=== PATIENT | female | born 1955 ===

== ENCOUNTER 2025-01-09 08:48 | Outpatient (CLI) | payer MEDICARE, MEDICAID, SELFPAY ==
--- NOTE | ~2025-01-09 | XR_ITS ---
Fluoroscopically-guided video swallow - 01/09/2025 09:20 CDT History: : 69 years old Female with dysphagia Technique: Fluoroscopic guidance was provided during video swallowing study. Under direct fluoroscopic evaluatio n, the speech pathologist administered barium mixed liquids and solid food of varying consistency. T he mechanisms of bolus formation and swallowing were observed. FINDINGS/ IMPRESSION: Patient swallowed liquid barium. No nasopharyngeal reflux was seen. There were residuals on the posterior tongue and pooling within the vallecula and piriform sinuses. Multiple swallows were required to clear the residuals. Fluoroscopically-guided video swallowing study, as above. Please see speech pathology report for furt her details. Reviewed, dictated and finalized at location A.
--- OUTSIDE RECORDS SUMMARY | 2025-01-09 09:12 | XMS_ITS | Clinical Summary ---
Author Organization [facility] Address [address] [place] [address] Care Team Providers Care Accounting Coordinator Name Role Phone Unavailable Primary Care Provider Unavailabl e Social History Tobacco Use Types Packs/Day Years Used Date Smoking Tobacco: Never Assessed Comments Unknown Sex and Gender Information Value Date Recorded Sex Assigned at Not on file Legal Sex Female 6:43 PM CDT Gender Identity Not on file Sexual Orientation Not on file Plan of Treatment Health Maintenance Due Date Last Done Comments Colorectal Cancer Screening Colonoscopy (10 Years) 1954 Hepatitis C 1972 DTaP, Tdap and Td Vaccines ( 1 - Tdap) 1973 Mammogram Screening 1994 Zoster Vaccines (1 of 2) 2004 Dexa Scan (General) 2019 Pneumococcal Vaccine: 65+ Ye ars (1 of 1 - PCV) 2019 COVID-19 Vaccine ( - 2023-2 5 season) 2024 RSV Immunization or 60+ Years (1 - 1-dose 75+ series) 2029 Meningococcal B Vaccine Aged Out No l onger eligible based on patient's age to complete this topic Meningococcal Vaccine Aged Out No kaiden yoel eligible based on patient's age to complete this topic RSV Immunizations Under 20 Months Aged Out No longer eligible based on patient's age to complete this topic
--- OUTSIDE RECORDS SUMMARY | 2025-01-09 09:12 | XMS_ITS | Clinical Summary ---
Author Organization [facility] Address [address] [place] [address] Care Team Providers Care Product Manager E Commerce Name Role Phone Jose David Orellana MD Primary Care Provider [phone] Allergies No known active allergies Medications gabapentin (NEURONTIN) 400 mg capsule Take 1 capsule (400 mg total) by mouth 3 (three) times a day 90 capsule 5 03/15/2023 Active baclofen (LIORESAL) 10 mg tablet Take 1 tablet (10 mg total) by mouth 3 (three) times a day 90 tablet 5 03/15/2023 Active lisinopriL (PRINIVIL,ZESTRI L) 10 mg tablet Take 1 tablet (10 mg total) by mouth daily 30 tablet 5 03/15/2023 Active QUEtiapine (SEROquel) 50 mg tablet Take 1 tablet (50 mg total) by mouth nightly 30 tablet 5 03/15/2023 Active famotidine (PEPCID) 40 mg tablet Take 1 tablet (40 mg total) by mouth daily Active donepeziL (ARICEPT) 10 mg tablet Take 1 tablet (10 mg total) by mouth nightly 90 tablet 3 05/08/2023 Active escitalopram (LEXAPRO) 20 mg tablet Take 1 tablet (20 mg total) by mouth daily 90 tablet 4 05/08/2023 Active traMADoL (ULTRAM) 50 mg tablet Take 1 tablet (50 mg total) by mouth every 6 (six) hours as needed for pain Active meloxicam (MOBIC) 15 mg tabletIndication s:Right-sided low back pain with right-sided sciatica, unspecified chronicity Take 0.5 tablets (7.5 mg total) by mouth daily for 15 days 30 tablet 1 09/07/2023 Active alendronate (FOSAMAX) 70 mg tablet 11/09/2023 Active scopolamine 1 mg over 3 days patch 3 day 10/25/2023 Active aspirin 81 mg enteric coated tablet Take 1 tablet (81 mg total) by mouth daily 90 tablet 3 11/14/2023 Active carbidopa-levodo pa (SINEMET) 10-100 mg per tabletIndication s:Parkinsonism Take 1.5 tablets by mouth 4 (four) times a day 540 tablet 3 11/14/2023 Active HYDROcodone-acet aminophen (NORCO) 5-325 mg per tabletIndication s:Pain Take 1 tablet by mouth every 6 (six) hours as needed for pain 20 tablet 12/09/2023 Active doxycycline hyclate 100 mg capsule 12/06/2023 Active Active Problems Problem Noted Date Diagnosed Date Right-sided low back pain with right-sided sciat ica 09/07/2023 Right hip pain 07/12/2023 Closed fracture of neck of right femur 3 Peripheral polyneuropathy 06/11/2023 Dyspepsia 06/11/2023 Unsteady gait 05/08/2023 Assessment & Plan (05/08/2023 11:52 AM CDT): Discussed possibility of physical therapy. We will give prescription for Rollator walker with seat. Recurrent falls 05/08/2023 Assessment & Plan (05/08/2023 11:52 AM CDT): discussed possible physical therapy will give Rollator walker with seat. Generalized weakness 05/08/2023 Memory loss 05/08/2023 Assessment & Plan (05/08/2023 11:54 AM CDT): Likely due to Alzheimer's dementia and we will try Aricept 10 mg Bipolar depression 05/07/2023 Assessment & Plan (05/08/2023 11:53 AM CDT): Mood could be better. Continue Seroquel same dosage but increase Lexapro from 10-up to 20 mg daily. Loose stools 03/06/2023 Assessment & Plan (03/06/2023 11:56 AM CDT): Refer to Gastroenterology Aftercare following right hip joint replacement surgery 03/04/2023 Pre-diabetes 03/04/2023 Assessment & Plan (05/07/2023 10:51 AM CDT): Improved without medicine. Assessment & Plan (03/04/2023 3:12 PM CDT): Worsening with higher blood sugars. Recommend metformin. metformin declined. Primary osteoarthritis involving multiple joints 03/04/2023 Cerebral infarction, unspecified 11/06/2022 Cognitive communication deficit 11/06/2022 Dysarthria and anarthria 11/06/2022 Dysphagia, oropharyngeal phase 11/06/2022 Hemiplegia and hemiparesis f ollowing cerebral infarction affecting right dominant side 11/06/2022 Muscle weakness (generalized) 11/06/2022 Other abnormalities of gait and mobility 023 Hypoglycemia 10/29/2022 Depression, unspecified 10/01/2020 Mild protein-calorie malnutrition 10/01/2020 Arthralgia of temporomandibular joint 11/08/2017 Parkinson's disease 10/12/2017 Assessment & Plan (03/06/2023 12:09 PM CDT): Continue Sinemet at same dosage. Well controlled. Refer neurology Hypertension 08/03/2017 Assessment & Plan (03/06/2023 12:10 PM CDT): Continue lisinopril/at same dosage but discontinue the hydralazine as they have been only using this infrequently p.r.n.. Discussed dangerous p.r.n. use of blood pressure medication. 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 Hypertrophy of nasal turbinates 07/06/2015 Deviated nasal septum 07/06/2015 Immunizations Immunization Administration Dates Next Due Influenza, Quadrivalent, Spl it, Intramuscular 08/23/2021 Influenza, Trivalent, IM (MDV) 11/08/2016 Influenza, Trivalent, Preser vative Free, Intramuscular 07/20/2017 Influenza, Unspecified 06/11/2023(Deferr ed: Patient decision),05/08/2023(Deferred: Patient decision),07/15/2022 Pfizer Sars-Cov-2 Bivalent V accination (12+ YRS) 11/30/2022 Pneumococcal Conjugate Pcv20 07/15/2022 Zoster, unspecified 05/10/2022 Surgical History Surgery Date Site/Laterality Comments HYSTERECTOMY Medical History Medical History Date Comments Personal history of transien t ischemic attack (TIA), and cerebral infarction without residual deficits History of stroke - (Added b y TW Conv) Neoplasm Tumors - (Added by TW Conv) Personal history of healed t raumatic fracture History of fracture of wrist - (Added by TW Conv) Personal history of healed t raumatic fracture History of fracture of hip - (Added by TW Conv) Parkinson's disease (HCC) Hypertension Osteoporosis Parkinson disease (HCC) Pituitary neoplasm Stroke (HCC) Chronic diarrhea Family History Medical History Relation Name Comments Hypertension Father Dementia Mother Family history of dementia - (Added by TW Conv) Diabetes Mother Family history of diabetes mellitus - (Added by TW Conv) Hypertension Mother Family history of hypertension - (Added by TW Conv) Stroke Mother Hypertension Sister Relation Name Status Comments Father Mother Sister Social History Tobacco Use Types Packs/Day Years Used Date Smoking Tobacco: Never Tobacco Cessation:Counseling Given: Not Answered Alcohol Use Standard Drinks/Week Comments Not Currently 0 (1 standard drink = 0.6 oz pur e alcohol) Social Connection and Isolat ion Panel [NHANES] Answer Date Recorded In a typical week, how many times do you talk on the phone with family, friends, or neighbors? More than three times a week 06/29/2023 How often do you get togethe r with friends or relatives? More than three times a week 06/29/2023 How often do you attend chur [employer] or jainism services? Never 06/29/2023 Do you belong to any clubs o r organizations such as moravian groups, unions, fraternal or athletic groups, or school groups? No 06/29/2023 How often do you attend meet ings of the clubs or organizations you belong to? Never 06/29/2023 Are you , , di vorced, , never , or living with a partner? 06/29/2023 AUDIT-C Answer Date Recorded Q1: How often do you have a drink containing alcohol? Never 05/18/2023 Q2: How many drinks containi ng alcohol do you have on a typical day when you are drinking? Patient does not drink Q3: How often do you have si x or more drinks on one occasion? Never 05/18/2023 Overall Financial Resource Strain (CARDIA) Answe r Date Recorded How hard is it for you to pa y for the very basics like food, housing, medical care, and heating? Not hard at all 06/29/2023 PHQ-2 Answer Date Recorded PHQ-2 Total Score (If total score is 3 or more points, staff should administer the PHQ-9) 2 05/08/2023 Hunger Vital Sign Answer Date Recorded Within the past 12 months, y ou worried that your food would run out before you got the money to buy more. Never true 06/29/20 23 Within the past 12 months, t he food you bought just didn't last and you didn't have money to get more. Never true 06/29/2023 PRAPARE - Transportation Answer Date Re corded In the past 12 months, has l ack of transportation kept you from medical appointments or from getting medications? No 06/02 In the past 12 months, has l ack of transportation kept you from meetings, work, or from getting things needed for daily living? No 06/29/2023 Housing Stability Vital Sign Answer Alex e Recorded In the last 12 months, was t here a time when you were not able to pay the mortgage or rent on time? No 06/29/2023 In the last 12 months, how many places have you lived? 1 06/29/2023 In the last 12 months, was t here a time when you did not have a steady place to sleep or slept in a senior living (including now)? No 06/29/2023 Personal Safety Answer Date Recorded Have you ever been in or are you currently in a harmful physical or emotional relationship or is someone making you feel afraid or unsafe? Denies 01/06/2024 Comments Unknown Sex and Gender Information Value Date Recorded Sex Assigned at Not on file Legal Sex Female 4:09 AM CLOTH PACKER Gender Identity Not on file Sexual Orientation Not on file Obstetrics History Last Filed Vital Signs Vital Sign Reading Time Taken Comments Blood Pressure 180/90 01/06/2024 3:00 PM CDT Pulse 65 01/06/2024 3:00 PM CDT Temperature 36.4 C (97.6 F) 01/06/2024 2:04 PM CDT Respiratory Rate 19 01/06/2024 3:00 PM CDT Oxygen Saturation 100% 01/06/2024 3:00 PM CDT Inhaled Oxygen Concentration - - Weight 70 kg (154 lb 5.2 oz) 01/06/2024 2:03 PM CDT Height 167.6 cm (5' 5.98 ) 01/06/2024 2:03 PM CD T Body Mass Index 24.92 01/06/2024 2:03 PM CDT Plan of Treatment Health Maintenance Due Date Last Done Comments Breast Cancer Screening-Mammogram 1955 Hepatitis C Screening 1955 DTaP/Tdap/Td Vaccine (1 - Tdap) 1965 Hepatitis B Screening 1972 Zoster Vaccine (1 of 2) 2004 05/10/2022 Osteoporosis Screening-Bone Density Scan 11/13/2019 11/13/2017 Well Visit 65+ 03/06/2024 03/06/2023 Depression Screening 05/08/2024 05/08/2023, 03/06/20 23 Covid-19 Vaccine (5 - 2023-2 5 season) 2024 11/30/2022, 07/06/2021, 10/26/2020, Additional history exists Fall Risk Assessment 07/02/2024 07/02/2023, 03/06/20 23 Influenza Vaccine (Season Ended) 2025 07/15/2022, 08/23/2021, 07/20/2017, Additional history exists Colon Cancer Screening-Colonoscopy 05/18/2033 05/18/2023 Pneumococcal vaccine 65+ Completed 07/15/2022 Colon Cancer Screening-CT Colonography Discontinued 05/18/2023 Colon Cancer Screening-DNA Stool Discontinued 05/18/20 Colon Cancer Screening-FIT Discontinued 05/18/2023 Colon Cancer Screening-Sigmoidoscopy Discontinued 05/18/2023 Medical Devices Implanted Type Area Weather Observer Device Identifier Shelf Expiration Date Model / Serial / Lot [employer] Bioprep Preparation Plug Cathode Builder [place] Curette Suction Femoral [id number] - [id number] Implanted:Qty: 1 on 06/29/2023 by Jerson Noble MD at [facility] Right: Hip [employer] [id number] 11/30/2027 [id number] / / [id number] [employer]/Ort ho Synergy 10mm 115mm Primary Cemented Forged Hip 3d Standard Offset [id number] - [id number] Implanted:Qty: 1 on 06/29/2023 by Jerson Noble MD at [facility] Right: Hip [employer]/O rtho [id number] 11/04/2032 [id number] / / [id number] [employer]/Ort ho Invis 10mm Reconstruction Hip Femur Distal Centralizer Stem Pmma [id number] - [id number] Implanted:Qty: 1 on 06/29/2023 by Jerson Noble MD at [facility] Right: Hip [employer]/O rtho [id number] 05/12/2033 [id number] / / [id number] [employer] Simplex P Radiopaque Full Dose Cement Bone Sterile 6191-1-010 - [id number] Implanted:Qty: 2 on 06/29/2023 by Jerson Noble MD at [facility] Right: Hip [employer] 09/30/2025 6191-1-010 / / [id number] [employer]/Ort ho Tandem 45mm 28mm Hip Shell/Liner Bipolar Uhmwpe Cocr [id number] - [id number] Implanted:Qty: 1 on 06/29/2023 by Jerson Noble MD at [facility] Right: Hip [employer]/O rtho [id number] 01/27/2033 [id number] / / [id number] [employer]/Ort ho Powers 28mm Taper Neck Primary Hip +0mm 09/13 Head Femoral Cocr [id number] - [id number] Implanted:Qty: 1 on 06/29/2023 by Jerson Noble MD at [facility] Right: Hip [employer]/O rtho [id number] 08/07/2032 [id number] / / [id number] Procedures Procedure Name Priority Date/Time Associated Diagnosis Comments COLONOSCOPY 05/18/2023 2:09 PM CDT BONE MINERAL DENSITY 11/13/2017 from Last 3 Months or Most Recently Relevant to Health Maintenance Results * COLONOSCOPY (05/18/2023 2:09 PM CDT) Anatomical Region Laterality Modality Other Narrative Procedure Note Jacqui Fabian MD - 05/18/2023 2:09 PM CDT [facility] GI ENDOSCOPY Patient Name: Marly Oneal Procedure Date: 05/18/2023 2:09 PM Date of : 1955 Admit Type: Outpatient Age: 67 Gender: Female Attending MD: Jacqui Fabian M.D. Room: [facility] ENDOSCOPY ROOM 05 Note Status: Finalized Procedure: Colonoscopy Indications: Screening for colorectal malignant neoplasm Referring MD: Providers: Jacqui Fabian M.D. Medicines: See the Anesthesia note for documentation of the administered medications Complications: No immediate complications. Estimated Blood Loss: Estimated blood loss: none. Procedure: Pre-Anesthesia Assessment: - Prior to the procedure, a History and Physicalwas performed, and patient medications, allergies and sensitivities were reviewed. The patient'stolerance of previous anesthesia was reviewed. - The risks and benefits of the procedure and the sedation options and risks were discussed with the patient. All questions were answered and informed consent was obtained. The benefits, risks and alternatives of theprocedure and sedation were discussed and informed consentwas obtained. All questions were answered. Please referto the signed informed consent document in the medical record. The scope was passed under direct vision.The PCF-H180AL colonoscope was introduced through theanus and advanced to the cecum, identified byappendiceal orifice and ileocecal valve. The colonoscopy was performed without difficulty. The patient tolerated the procedure well. The quality of the bowel preparation was adequate to identify polyps. The ileocecal valve, appendiceal orifice, and rectumwere photographed. Prep was administered in a singledose. Findings: The perianal and digital rectal examinations were normal. Pertinent negatives include normal sphincter tone. A few small-mouthed diverticula were found in the left colon. Impression: - The entire examined colon is normal on direct and retroflexion views. - No specimens collected. Recommendation: - Resume previous diet. - Continue present medications. aJcqui Fabian M.D. Jacqui Fabian M.D. 05/18/2023 2:53:22 PM . Number of Addenda: 0 Note Initiated On: 05/18/2023 2:09 PM Recognized by the [employer] for promoting quality in endoscopy Jacqui Fabian MD ENDOSCOPY PROCEDURES Rubina l Result * BONE MINERAL DENSITY (11/13/2017) Anatomical Region Laterality Modality Radiographic Winsome ging Narrative 11/13/2017 Ordered by an unspecified provider. Historical Provider IMG DXA PROCEDURES Final Result from Last 3 Months or Most Recently Relevant to Health Maintenance Insurance MEDICARE [facility] MEDICARE [place] MEDICARE [facility] Advance Directives For more information, please contact: [phone] Documents on File Type Date Recorded Patient Personnel Clerk Expl anation ADVANCE DIRECTIVE 11/26/2023 3:44 PM POLST ADVANCE DIRECTIVE 10/08/2023 3:45 PM POLST - Phys Order for PT Preferences ADVANCE DIRECTIVE 11/07/2022 1:18 PM POLST - Phys Order for PT Preferences ADVANCE DIRECTIVE 11/07/2022 1:17 PM Power of Automobile Dealer-Medical * Full Code (Latest Code Status on File) Date Activated Date Inactivated Comments 06/28/2023 6:19 PM 07/02/2023 10:11 PM * Full Code Date Activated Date Inactivated Comments 10/30/2022 7:41 AM 11/06/2022 9:57 PM Care Teams Product Manager E Commerce Relationship Specialty Start Date End Date Jose David Orellana MD [address] [place] [id number] PCP - General Family Practice 03/06/23
--- OUTSIDE RECORDS SUMMARY | 2025-01-09 09:12 | XMS_ITS ---
Author Organization [facility] Care Team Providers Care Rotary Derrick Operator Name Role Phone Arielle Mckeon Unavailable Unavailable Bianca Pastrana Unavailable Unavailable Rebeka Wesley Unavailable Unavailable Hernique Vilchis Unavailable Unavailable Allergies and adverse reactions No Known Allergies Care Team Name Role Address Phone Organization Dates Arielle Mckeon PCP [address] [place], [address], [place] (Office): : : [facility] 10/10/2022 - 10/29/2022 Bianca Pastrana Attending Physician [address] [place], [place], [facility], [place] (Office): : [facility] 10/10/2022 - 10/29/2022 Rebeka Wesley Attending Physician [address] [place], [address], [place] (Office): : : [facility] 10/10/2022 - 10/29/2022 Henrique Vilchis Attending Physician [address] [place], [address], [place] (Office): : : [facility] 10/10/2022 - 10/29/2022 Goals Section Description Status Target Date Marly will improve current level of function. A ctive 12/31/2022 Skin will be kept free of an y breakdown or pressure ulcer development through next review date. Active 12/31/2022 The resident will be free fr om discomfort or adverse reactions related to antidepressant therapy through the review date. Active 12/31/2022 The resident will be free of injury r/t falls. A ctive 12/31/2022 The resident will be/remain free of psychotropic drug related complications, including movement disorder, discomfort, hypotension, gait disturbance, constipation/impaction or cognitive/behavioral impairment through review date. Active 0 12/31/2022 The resident will maintain intact skin. Active 12/31/2022 The resident will reduce the use of psychotropic medication through the review date. Active 12/31/2022 The resident will remain jake e from s/sx of hypertension through the review date. Active 12/31/2022 The resident will remain jake e of complications related to hypertension through review date. Active 12/31/2022 The resident will remain jake e of further s/sx, discomfort or complications related to Parkinson's disease through review date. Active 12/31/2022 The resident will remain jake e of s/sx of distress, symptoms of depression, anxiety or sad mood by/through review date. Active 12/31/2022 Mental Status Section Date Assessment Total Score Description 10/29/2022 CAM 0 No delirium ind icated 10/23/2022 BIMS 15 cognitively int act CAM 0 No delirium ind icated PHQ-9 01 minimal depress ion Problems Problem # Description Date of onset Resolved Date Code CodeSystem Concern Status 1 ADULT FAILURE TO THRIVE 10/10/[address] active 2 DEHYDRATION 10/10/[address] active 3 ESSENTIAL (PRIMARY) HYPERTENSION 10/10/[address] active 4 INSOMNIA, UNSPECIFIED 10/10/[address] active 5 MAJOR DEPRESSIVE DISORDER, RECURRENT, UNSPECIFIED 10/10/[address] active 6 MUSCLE WEAKNESS (GENERALIZED) 10/10/[address] active 7 OTHER IDIOPATHIC PERIPHERAL AUTONOMIC NEUROPATHY 10/10/[address] active 8 PARKINSON'S DISEASE 10/10/[address] active 9 PERSONAL HISTORY OF TRANSIENT ISCHEMIC ATTACK (TIA), AND CEREBRAL INFARCTION WITHOUT RESIDUAL DEFICITS 10/10/[address] active 10 URINARY TRACT INFECTION, SITE NOT SPECIFIED 10/10/[address] active Reason for Referral No Reasons for Referral Entered Social History Social History Observation Description Start Date End Date Code Code System Current Smoking Status Tobacco smoking consumption unknown 252617871 SNOMED CT Sex Assigned At Female 1955 [address]-4 [facility] Vital Signs Code Code System Vitals Name Values and Units Timing Information 2339-0 [facility] Blood Sugar Value=33.0 Units=mg/dL 10/29/2022 10976-7 INC Pain Level Value=0.0 10/29/2022 93946-0 INC Weight Bktri=029.0 Units=Lbs 9279-1 [facility] Respiratory Rate Value=18.0 Units=/m in 10/13/2022 8462-4 [facility] Blood Pressure-Diastolic Value=68 Un its=mmHg 10/13/2022 8480-6 LOINC Blood Pressure-Systolic Fwmdr=479 Un its=mmHg 10/13/2022 8310-5 [facility] Body Temperature Value=97.5 Units= F 10/13/2022 8867-4 INC Heart rate Value=66.0 Units=/min 58043-2 [facility] O2 % BldC Oximetry Value=97.0 Units= % 10/13/2022 8302-2 LOINC Height Value=66.0 Units=Inches 10/10/2022
--- OUTSIDE RECORDS SUMMARY | 2025-01-09 09:12 | XMS_ITS | Clinical Summary ---
Author Organization [facility] Address [address] [place] [address] Care Team Providers Care College Administrator Name Role Phone Chang Butterfield MD Primary Care Provider [phone] Source Comments [facility],non-owned Affiliates and Associated Physician Practices is amultiple site organization consisting of ambulatory clinics and hospital sitesin [place], [place], [place] and [place]. This disclosure is being madepursuant to the Care Everywhere program and may not contain all information available regarding this patient. Last updated 18.[facility] Allergies No known active allergies Encounters Date Type Department Care Team Description 10/25/2024 3:54 PM MANAGER NON PROFIT - 10/25/2024 10:20 PM MANAGER NON PROFIT Emergency [facility] [address] [place] [id number] Malcolm Prajapati MD Fall, initial encounter Discharge Disposition: Home or Self Care 10/25/2024 Travel from Last 3 Months Social History Tobacco Use Types Packs/Day Years Used Date Smoking Tobacco: Never Assessed Sex and Gender Information Value Date Recorded Sex Assigned at Not on file Gender Identity Not on file Sexual Orientation Not on file Last Filed Vital Signs Vital Sign Reading Time Taken Comments Blood Pressure 131/79 10/25/2024 10:15 PM MANAGER NON PROFIT Pulse 90 10/25/2024 10:15 PM MANAGER NON PROFIT Temperature - - Respiratory Rate 19 10/25/2024 10:15 PM MANAGER NON PROFIT Oxygen Saturation 97% 10/25/2024 10:15 PM MANAGER NON PROFIT Inhaled Oxygen Concentration - - Weight - - Height - - Body Mass Index - - Plan of Treatment Health Maintenance Due Date Last Done Comments COLOGUARD (AGES 45-75) - COLON CA SCREENING [address] COLONOGRAPHY - COLON CA SCREENING 1954 FIT - COLON CA SCREENING 1954 FLEX SIG - COLON CA SCREENING 1954 LIPID TESTING 1954 MAMMOGRAM 1954 MEDICARE AWV 12 MONTHS 1954 HEPATITIS C SCREENING 08/31/1972 DTAP/TDAP/TD VACCINES (1 - Tdap) 1973 PNEUMOCOCCAL VACCINE 50+ (1 of 1 - PCV) 2004 ZOSTER VACCINE (1 of 2) 2004 Respiratory Syncytial Virus (RSV) Vaccine Pt: or over 60 yrs (1 - Risk 60-74 years 1-dose series) 2014 COVID-19 VACCINE ( season) 2024 11/30/2022, 07/06/2021, 10/26/2020, Additional history exists DEPRESSION SCREENING 10/01/2024 INFLUENZA VACCINE (Season Ended) 2025 07/15/2022, 08/23/2021, 07/20/2017, Additional history exists COLONOSCOPY - COLON CA SCREENING 05/18/2033 05/18/2023 Colorectal Cancer Screening 05/18/2033 BONE DENSITY TESTING Completed 11/13/2017 HEPATITIS B VACCINE Aged Out No longe r eligible based on patient's age to complete this topic HIB VACCINE Aged Out No longer eligi ble based on patient's age to complete this topic HPV VACCINE Aged Out No longer eligi ble based on patient's age to complete this topic MENINGOCOCCAL (Group B) VACCINE SHARED DECISION-MAKING Aged Out No longer eligible based on patient's age to complete this topic MENINGOCOCCAL GROUPS A/C/Y/W VACCINE Aged Out No longer eligible based on patient's age to complete this topic Procedures Procedure Name Priority Date/Time Associated Diagnosis Comments XR PELVIS 1 OR 2VW STAT 10/25/2024 7: 55 PM MANAGER NON PROFIT Fall, initial encounter CT HEAD WO CONTRAST STAT 10/25/2024 7 :12 PM MANAGER NON PROFIT Fall, initial encounter CT CERVICAL SPINE WO CONTRAST STAT 10/25/2024 7:12 PM MANAGER NON PROFIT Fall, initial encounter URINE MICROSCOPIC ONLY REFLEX TO CULTURE STAT 10/25/2024 6:29 PM MANAGER NON PROFIT URINALYSIS REFLEX MICROSCOPIC REFLEX CULTURE STAT 10/25/2024 6:29 PM MANAGER NON PROFIT COMPREHENSIVE METABOLIC PANEL STAT 10/25/2024 6:17 PM MANAGER NON PROFIT CBC W AUTO DIFFERENTIAL STAT 10/25/2024 6:17 PM MANAGER NON PROFIT GLUCOSE - POINT OF CARE Routine 10/25/2024 4:18 PM MANAGER NON PROFIT from Last 3 Months Results * XR Pelvis 1 or 2Vw (10/25/2024 7:55 PM MANAGER NON PROFIT) Anatomical Region Laterality Modality Pelvis Digital Radiogra phy 10/25/2024 8:19 PM MANAGER NON PROFIT Impressions 10/26/2024 12:44 AM MANAGER NON PROFIT IMPRESSION: No acute fracture identified. Report dictated by David Avilez DO (resident assistant). IZachary MD have personally reviewed and interpreted this examination/study. > Interpreting Provider: Zachary Sommer MD on 10/26/2024 12:44 AM Narrative 10/26/2024 12:44 AM MANAGER NON PROFIT PROCEDURE: XR PELVIS 1 OR 2VW, DATE/TIME OF EXAM: 10/25/2024 7:55 PM, LOCATION [facility] INDICATION: W19.XXXA: Fall, initial encounter ADDITIONAL CLINICAL INFORMATION: Ordering Provider Reason For Exam: hip fx? COMPARISON: None. 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 No acute fracture is identified. The pubic symphysis is intact. The bones are diffusely demineralized. The sacroiliac joints are normal. Calcifications in the pelvis likely represent uterine fibroids. Procedure Note Zachary Sommer MD - 10/26/2024 PROCEDURE: XR PELVIS 1 OR 2VW, DATE/TIME OF EXAM: 10/25/2024 7:55 PM, LOCATION [facility] INDICATION: W19.XXXA: Fall, initial encounter ADDITIONAL CLINICAL INFORMATION: Ordering Provider Reason For Exam: hip fx? COMPARISON: None. 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 No acute fracture is identified. The pubic symphysis is intact. The bones are diffusely demineralized. The sacroiliac joints are normal.Calcifications in the pelvis likely represent uterine fibroids. IMPRESSION: No acute fracture identified. Report dictated by David Avilez DO (resident assistant). I, Zachary Sommer MD have personally reviewed and interpreted this examination/study. > Interpreting Provider: Zachary Sommer MD on 10/26/2024 12:44 AM Malcolm Prajapati MD DIAGNOSTIC IMAGING O RDERABLES * CT Cervical Spine Wo Contrast (10/25/2024 7:12 PM MANAGER NON PROFIT) Anatomical Region Laterality Modality Spine Computed Tomogra phy 10/25/2024 7:29 PM MANAGER NON PROFIT Impressions 10/25/2024 7:37 PM MANAGER NON PROFIT IMPRESSION: 1.No acute intracranial hemorrhage, midline shift, or significant mass effect. 2.No evidence of acute fracture in the cervical spine. > Interpreting Provider: Johan Gardiner MD on 10/25/2024 7:37 PM Narrative 10/25/2024 7:37 PM MANAGER NON PROFIT PROCEDURE: CT HEAD WO CONTRAST, CT CERVICAL SPINE WO CONTRAST, DATE/TIME OF EXAM: 10/25/2024 7:12 PM, LOCATION [facility] INDICATION: W19.XXXA: Fall, initial encounter EXAMINATION: 1.Computed tomography (CT) of the head without contrast 2.CT of the cervical spine without contrast ADDITIONAL CLINICAL INFORMATION: Ordering Provider Reason For Exam: bleed? Technologist Note: None. Additional: None. TECHNIQUE: CT of the head and cervical spine was performed without contrast according to standard protocol. CT dose reduction technique was used, including Automated Exposure Control. COMPARISON: No prior study is available for comparison at the time of this dictation. FINDINGS: Head: No acute intra- or extra-axial fluid collections are identified. There is mild cerebral volume loss with associated ex vacuo ventricular dilatation. The basilar cisterns are patent. No mass effect or midline shift is seen. The rose-white matter differentiation otherwise appears normal. Periventricular white matter hypoattenuation is indicative of chronic small vessel ischemic disease. There is vascular calcification of the carotid siphons. No acute calvarial fracture is identified. The orbits appear normal. Complete opacification of the right lateral recess of the sphenoid sinus with expansile cystic structure protruding inside the right sphenoid sinus. There is adjacent fluffy/fluffy secretions. Fluffy secretions also noted in the left sphenoid sinus. Partial opacification of the right ethmoid air cells. Small mucous retention cysts are seen in the maxillary sinuses, right more than left. Minimal mucosal thickening in the remaining paranasal sinuses. The nasal septum is noted to the right. There is a small bony septal spur directed to the right The mastoid air cells are grossly clear. No soft tissue abnormality is identified. Cervical spine: Minimal retrolisthesis of cc on C4. Minimal anterolisthesis of C7 on T1. The bones are osteopenic. Mild anterior wedging of the C7 vertebral body. Minimal anterior wedging of C3-C6. Vertebral bodies are otherwise grossly maintained in height without evidence of acute fracture. Other than middle atlantoaxial joint osteoarthritis, the craniocervical junction appears normal. There is mild degenerative disc disease. No high-grade central canal stenosis is seen. There are varying degrees of mild facet osteoarthritis. There are varying degrees of mild uncovertebral joint osteoarthritis with the same degree of neural foraminal stenosis at these levels. There is atherosclerotic calcification of the carotid bifurcations. Brain injury guidelines: Skull fracture: No Subdural hematoma: No subdural hematoma. Epidural hematoma: No epidural hematoma. Intraparenchymal hemorrhage: No intraparenchymal hemorrhage. Subarachnoid hemorrhage: No subarachnoid hemorrhage. Intraventricular hemorrhage: No. Midline shift: No. Procedure Note Johan Gardiner MD - 10/25/2024 PROCEDURE: CT HEAD WO CONTRAST, CT CERVICAL SPINE WO CONTRAST,DATE/TIME OF EXAM: 10/25/2024 7:12 PM, LOCATION [facility] INDICATION: W19.XXXA: Fall, initial encounter EXAMINATION: 1.Computed tomography (CT) of the head without contrast 2.CT of the cervical spine without contrast ADDITIONAL CLINICAL INFORMATION: Ordering Provider Reason For Exam: bleed? Technologist Note: None. Additional: None. TECHNIQUE: CT of the head and cervical spine was performed withoutcontrast according to standard protocol. CT dose reduction technique was used, including Automated Exposure Control. COMPARISON: No prior study is available for comparison at the time ofthis dictation. FINDINGS: Head: No acute intra- or extra-axial fluid collections are identified. Thereis mild cerebral volume loss with associated ex vacuo ventriculardilatation. The basilar cisterns are patent. No mass effect or midline shift isseen. The rose-white matter differentiation otherwise appears normal. Periventricular white matter hypoattenuation is indicative of chronicsmall vessel ischemic disease. There is vascular calcification of the carotid siphons. No acute calvarial fracture is identified. The orbits appear normal. Complete opacification of the right lateral recess of thesphenoid sinus with expansile cystic structure protruding inside the rightsphenoid sinus. There is adjacent fluffy/fluffy secretions. Fluffy secretionsalso noted in the left sphenoid sinus. Partial opacification of the right ethmoid air cells. Small mucous retention cysts are seen in themaxillary sinuses, right more than left. Minimal mucosal thickening in theremaining paranasal sinuses. The nasal septum is noted to the right. There is asmall bony septal spur directed to the right The mastoid air cells are grossly clear. No soft tissue abnormality is identified. Cervical spine: Minimal retrolisthesis of cc on C4. Minimal anterolisthesis of C7 on T1. The bones are osteopenic. Mild anterior wedging of the C7 vertebralbody. Minimal anterior wedging of C3-C6. Vertebral bodies are otherwisegrossly maintained in height without evidence of acute fracture. Other thanmiddle atlantoaxial joint osteoarthritis, the craniocervical junction appears normal. There is mild degenerative disc disease. No high-grade central canal stenosis is seen. There are varying degrees of mild facet osteoarthritis. There are varying degrees of mild uncovertebral joint osteoarthritis with the same degree of neural foraminal stenosis atthese levels. There is atherosclerotic calcification of the carotidbifurcations. Brain injury guidelines: Skull fracture: No Subdural hematoma: No subdural hematoma. Epidural hematoma: No epidural hematoma. Intraparenchymal hemorrhage: No intraparenchymal hemorrhage. Subarachnoid hemorrhage: No subarachnoid hemorrhage. Intraventricular hemorrhage: No. Midline shift: No. IMPRESSION: 1.No acute intracranial hemorrhage, midline shift, or significant mass effect. 2.No evidence of acute fracture in the cervical spine. > Interpreting Provider: Johan Gardiner MD on 10/25/2024 7:37 PM Malcolm Prajapati MD CT ORDERABLES * CT Head Wo Contrast (10/25/2024 7:12 PM MANAGER NON PROFIT) Anatomical Region Laterality Modality Head Computed Tomogra phy 10/25/2024 7:29 PM MANAGER NON PROFIT Impressions 10/25/2024 7:37 PM MANAGER NON PROFIT IMPRESSION: 1.No acute intracranial hemorrhage, midline shift, or significant mass effect. 2.No evidence of acute fracture in the cervical spine. > Interpreting Provider: Johan Gardiner MD on 10/25/2024 7:37 PM Narrative 10/25/2024 7:37 PM MANAGER NON PROFIT PROCEDURE: CT HEAD WO CONTRAST, CT CERVICAL SPINE WO CONTRAST, DATE/TIME OF EXAM: 10/25/2024 7:12 PM, LOCATION [facility] INDICATION: W19.XXXA: Fall, initial encounter EXAMINATION: 1.Computed tomography (CT) of the head without contrast 2.CT of the cervical spine without contrast ADDITIONAL CLINICAL INFORMATION: Ordering Provider Reason For Exam: bleed? Technologist Note: None. Additional: None. TECHNIQUE: CT of the head and cervical spine was performed without contrast according to standard protocol. CT dose reduction technique was used, including Automated Exposure Control. COMPARISON: No prior study is available for comparison at the time of this dictation. FINDINGS: Head: No acute intra- or extra-axial fluid collections are identified. There is mild cerebral volume loss with associated ex vacuo ventricular dilatation. The basilar cisterns are patent. No mass effect or midline shift is seen. The rose-white matter differentiation otherwise appears normal. Periventricular white matter hypoattenuation is indicative of chronic small vessel ischemic disease. There is vascular calcification of the carotid siphons. No acute calvarial fracture is identified. The orbits appear normal. Complete opacification of the right lateral recess of the sphenoid sinus with expansile cystic structure protruding inside the right sphenoid sinus. There is adjacent fluffy/fluffy secretions. Fluffy secretions also noted in the left sphenoid sinus. Partial opacification of the right ethmoid air cells. Small mucous retention cysts are seen in the maxillary sinuses, right more than left. Minimal mucosal thickening in the remaining paranasal sinuses. The nasal septum is noted to the right. There is a small bony septal spur directed to the right The mastoid air cells are grossly clear. No soft tissue abnormality is identified. Cervical spine: Minimal retrolisthesis of cc on C4. Minimal anterolisthesis of C7 on T1. The bones are osteopenic. Mild anterior wedging of the C7 vertebral body. Minimal anterior wedging of C3-C6. Vertebral bodies are otherwise grossly maintained in height without evidence of acute fracture. Other than middle atlantoaxial joint osteoarthritis, the craniocervical junction appears normal. There is mild degenerative disc disease. No high-grade central canal stenosis is seen. There are varying degrees of mild facet osteoarthritis. There are varying degrees of mild uncovertebral joint osteoarthritis with the same degree of neural foraminal stenosis at these levels. There is atherosclerotic calcification of the carotid bifurcations. Brain injury guidelines: Skull fracture: No Subdural hematoma: No subdural hematoma. Epidural hematoma: No epidural hematoma. Intraparenchymal hemorrhage: No intraparenchymal hemorrhage. Subarachnoid hemorrhage: No subarachnoid hemorrhage. Intraventricular hemorrhage: No. Midline shift: No. Procedure Note Johan Gardiner MD - 10/25/2024 PROCEDURE: CT HEAD WO CONTRAST, CT CERVICAL SPINE WO CONTRAST,DATE/TIME OF EXAM: 10/25/2024 7:12 PM, LOCATION [facility] INDICATION: W19.XXXA: Fall, initial encounter EXAMINATION: 1.Computed tomography (CT) of the head without contrast 2.CT of the cervical spine without contrast ADDITIONAL CLINICAL INFORMATION: Ordering Provider Reason For Exam: bleed? Technologist Note: None. Additional: None. TECHNIQUE: CT of the head and cervical spine was performed withoutcontrast according to standard protocol. CT dose reduction technique was used, including Automated Exposure Control. COMPARISON: No prior study is available for comparison at the time ofthis dictation. FINDINGS: Head: No acute intra- or extra-axial fluid collections are identified. Thereis mild cerebral volume loss with associated ex vacuo ventriculardilatation. The basilar cisterns are patent. No mass effect or midline shift isseen. The rose-white matter differentiation otherwise appears normal. Periventricular white matter hypoattenuation is indicative of chronicsmall vessel ischemic disease. There is vascular calcification of the carotid siphons. No acute calvarial fracture is identified. The orbits appear normal. Complete opacification of the right lateral recess of thesphenoid sinus with expansile cystic structure protruding inside the rightsphenoid sinus. There is adjacent fluffy/fluffy secretions. Fluffy secretionsalso noted in the left sphenoid sinus. Partial opacification of the right ethmoid air cells. Small mucous retention cysts are seen in themaxillary sinuses, right more than left. Minimal mucosal thickening in theremaining paranasal sinuses. The nasal septum is noted to the right. There is asmall bony septal spur directed to the right The mastoid air cells are grossly clear. No soft tissue abnormality is identified. Cervical spine: Minimal retrolisthesis of cc on C4. Minimal anterolisthesis of C7 on T1. The bones are osteopenic. Mild anterior wedging of the C7 vertebralbody. Minimal anterior wedging of C3-C6. Vertebral bodies are otherwisegrossly maintained in height without evidence of acute fracture. Other thanmiddle atlantoaxial joint osteoarthritis, the craniocervical junction appears normal. There is mild degenerative disc disease. No high-grade central canal stenosis is seen. There are varying degrees of mild facet osteoarthritis. There are varying degrees of mild uncovertebral joint osteoarthritis with the same degree of neural foraminal stenosis atthese levels. There is atherosclerotic calcification of the carotidbifurcations. Brain injury guidelines: Skull fracture: No Subdural hematoma: No subdural hematoma. Epidural hematoma: No epidural hematoma. Intraparenchymal hemorrhage: No intraparenchymal hemorrhage. Subarachnoid hemorrhage: No subarachnoid hemorrhage. Intraventricular hemorrhage: No. Midline shift: No. IMPRESSION: 1.No acute intracranial hemorrhage, midline shift, or significant mass effect. 2.No evidence of acute fracture in the cervical spine. > Interpreting Provider: Johan Gardiner MD on 10/25/2024 7:37 PM Malcolm Prajapati MD CT ORDERABLES * (ABNORMAL) URINE MICROSCOPIC ONLY REFLEX TO CULTURE (10/25/2024 6:29 PM MANAGER NON PROFIT) Reflex Status Culture not indicated 10/25/2024 7:05 PM [facility] WBC UA 0-5 None Seen, 0-5 /HPF 10/25/2024 7:05 PM [facility] Bacteria UA Trace(A) None /HPF 10/25/2024 7:05 PM [facility] Squamous Epithelial Cells UA 0-2 None Seen, 0-2, 3-5 /HPF 10/25/2024 7:05 PM [facility] Mucus UA 2+ /LPF 10/25/2024 7:05 PM [facility] Hyaline Casts UA 3-5(A) None Seen, 0-2 /LPF 10/25/2024 7:05 PM [facility] Urine URINE SPECIMEN OBTAINED BY SINGLE CATHETERIZATION OF URINARY BLADDER / Unknown Collection / Unknown 10/25/2024 6:29 PM MANAGER NON PROFIT 10/25/2024 6:38 PM MANAGER NON PROFIT [facility] - 10/25/2024 7:05 PM MANAGER NON PROFIT Malcolm Prajapati MD LAB - URINALYSIS ORD ERABLES [facility] [address] [place] [id number], [facility] [place] [phone] * (ABNORMAL) URINALYSIS REFLEX MICROSCOPIC REFLEX CULTURE (10/25/2024 6:29 PM MANAGER NON PROFIT) Color UA Yellow Straw, Yellow 10/25/2024 6:58 PM [facility] Clarity UA Slt Cloudy(A) Clear 10/25/2024 6:58 PM [facility] Specific [place] UA 1.023 1.005 - 1.030 10/25/2024 6:58 PM [facility] pH UA 5.0 5.0 - 8.0 pH 10/25/2024 6:58 PM [facility] Protein UA 1+(A) Negative 10/25/2024 6:58 PM [facility] Glucose UA Negative Negative 10/25/2024 6:58 PM [facility] Ketone UA 2+(A) Negative 10/25/2024 6:58 PM [facility] Bilirubin UA Negative Negative 10/25/2024 6:58 PM [facility] Blood UA Negative Negative 10/25/2024 6:58 PM [facility] Nitrite UA Negative Negative 10/25/2024 6:58 PM [facility] Leukocyte Esterase Negative Negative 10/25/2024 6:58 PM [facility] Urobilinogen UA 2.0(A) Negative mg/dL 10/25/2024 6:58 PM [facility] Urine URINE SPECIMEN OBTAINED BY SINGLE CATHETERIZATION OF URINARY BLADDER / Unknown Collection / Unknown 10/25/2024 6:29 PM MANAGER NON PROFIT 10/25/2024 6:38 PM MANAGER NON PROFIT [facility] - 10/25/2024 6:58 PM MANAGER NON PROFIT Malcolm Prajapati MD LAB - URINALYSIS ORD ERABLES Performing Organization Address City/[facility]/ZIP Co de Phone Number [facility] [address] [place] [id number] [phone] * (ABNORMAL) CBC W AUTO DIFFERENTIAL (10/25/2024 6:17 PM MANAGER NON PROFIT) WBC 8.5 4.0 - 10.7 x10E9/L 10/25/2024 6:51 PM [facility] RBC Count 4.42 3.90 - 5.20 x10E12/L 10/25/2024 6:51 PM [facility] Hemoglobin 12.8 11.9 - 15.8 g/dL 10/25/2024 6:51 PM [facility] Hematocrit 38.9 34.8 - 46.1 % 10/25/2024 6:51 PM [facility] MCV 88.0 80.0 - 98.0 fL 10/25/2024 6:51 PM [facility] MCH 29.0 26.7 - 33.6 pg 10/25/2024 6:51 PM [facility] MCHC 32.9 31.7 - 36.3 g/dL 10/25/2024 6:51 PM [facility] RDW-CV 15.7(H) 11.3 - 14.8 % 10/25/2024 6:51 PM [facility] Platelet Count 284 150 - 420 x10E9/L 10/25/2024 6:51 PM [facility] MPV 10.5 7.8 - 11.4 fL 10/25/2024 6:51 PM [facility] Neutrophil % 73.7 41.0 - 74.0 % 10/25/2024 6:51 PM [facility] Lymphocyte % 16.0(L) 17.0 - 47.0 % 10/25/2024 6:51 PM [facility] Monocyte % 8.5 3.0 - 11.0 % 10/25/2024 6:51 PM [facility] Eosinophil % 1.3 0.0 - 7.0 % 10/25/2024 6:51 PM [facility] Basophil % 0.4 0.0 - 1.6 % 10/25/2024 6:51 PM [facility] Immature Granulocytes % 0.1 0.0 - 1.0 % 10/25/2024 6:51 PM [facility] Neutrophil Absolute 6.24 1.60 - 7.50 x10E9/L 10/25/2024 6:51 PM [facility] Lymphocyte Absolute 1.35 1.00 - 4.40 x10E9/L 10/25/2024 6:51 PM [facility] Monocyte Absolute 0.72 0.15 - 1.00 x10E9/L 10/25/2024 6:51 PM [facility] Eosinophil Absolute 0.11 0.00 - 0.60 x10E9/L 10/25/2024 6:51 PM [facility] Basophil Absolute 0.03 0.00 - 0.13 x10E9/L 10/25/2024 6:51 PM [facility] Blood BLOOD SPECIMEN / Unknown Venipuncture / Unknown 10/25/2024 6:17 PM MANAGER NON PROFIT 10/25/2024 6:39 PM [facility] Malcolm Prajapati MD LAB - HEMATOLOGY ORD ERABLES [facility] [address] [place] [address], [facility] [place] [phone] * (ABNORMAL) COMPREHENSIVE METABOLIC PANEL (10/25/2024 6:17 PM [facility]) BUN 18 7 - 26 mg/dL 10/25/2024 7:05 PM [facility] Creatinine 0.49(L) 0.56 - 0.96 mg/dL 10/25/2024 7:05 PM [facility] Sodium 144 136 - 145 mmol/L 10/25/2024 7:05 PM [facility] Potassium 3.7 3.5 - 4.5 mmol/L 10/25/2024 7:05 PM [facility] Chloride 109(H) 98 - 107 mmol/L 10/25/2024 7:05 PM [facility] CO2 20(L) 22 - 29 mmol/L 10/25/2024 7:05 PM [facility] Glucose 65(L) 70 - 99 mg/dL 10/25/2024 7:05 PM [facility] Calcium 8.7 8.4 - 10.2 mg/dL 10/25/2024 7:05 PM [facility] Protein Total 6.9 6.0 - 8.3 g/dL 10/25/2024 7:05 PM [facility] Albumin 3.2(L) 3.4 - 5.0 g/dL 10/25/2024 7:05 PM [facility] Bilirubin Total 0.3 0.2 - 1.2 mg/dL 10/25/2024 7:05 PM [facility] Alkaline Phosphatase 53 40 - 150 U/L 10/25/2024 7:05 PM [facility] ALT 8 5 - 55 U/L 10/25/2024 7:05 PM [facility] AST 16 5 - 34 U/L 10/25/2024 7:05 PM [facility] Anion Gap 15 6 - 16 10/25/2024 7:05 PM [facility] BUN/Creatinine Ratio 37(H) 7 - 23 10/25/2024 7:05 PM [facility] Osmolality Calculated 298(H) 275 - 295 mOsm/kg 10/25/2024 7:05 PM [facility] Albumin/Globulin Ratio 0.9(L) 1.1 - 2.3 10/25/2024 7:05 PM [facility] eGFR by CKD-EPI >90 >=90 mL/min/1.7 3 m2 10/25/2024 7:05 PM [facility] Blood BLOOD SPECIMEN / Unknown Venipuncture / Unknown 10/25/2024 6:17 PM MANAGER NON PROFIT 10/25/2024 6:40 PM MANAGER NON PROFIT Malcolm Prajapati MD LAB - CHEMISTRY RYLEE MARINO [facility] [address] [place] [address], [place] [phone] * (ABNORMAL) GLUCOSE - POINT OF CARE (10/25/2024 4:18 PM MANAGER NON PROFIT) Glucose WB/POC 68(L) 70 - 99 mg/dL 10/25/2024 4:19 PM MANAGER NON PROFIT [facility] Specimen Type Cap Fingerstick 2024 4:19 PM MANAGER NON PROFIT [facility] Blood BLOOD SPECIMEN / Unknown 10/25/2024 4:18 PM MANAGER NON PROFIT 10/25/2024 4:19 PM MANAGER NON PROFIT Provider Unknown LAB - POINT OF CARE ORDERABLES [facility] [address] [place] [address], [place] [phone] from Last 3 Months Care Teams College Administrator Relationship Specialty Start Date End Date Chang Butterfield MD [address] [place] [id number] PCP - General Internal Medicine 08/20/13
--- OUTSIDE RECORDS SUMMARY | 2025-01-09 09:12 | XMS_ITS | CONTINUITY OF CARE DOCUMENT ---
Author Name remberto sr Address Unknown Organization [facility] Address [address] [place] [address] Phone [phone] Care Team Providers Care Chain Splitter Name Role Phone Duglas Coates MD Unavailable [phone] SALOME DEUTSCH MD Unavailable [phone] SALOME DEUTSCH MD Unavailable [phone] INSURANCE PROVIDERS Payer name Policy type / Coverage type [place] red democrat [employer] Medicaid 0 [id number] [place] [employer] Medicare [id number]
--- OUTSIDE RECORDS SUMMARY | 2025-01-09 09:12 | XMS_ITS | Referral Summary ---
Author Organization [facility] Medical [facility] 1 Address [address] [place] [address] Care Team Providers Care Line Service Supervisor Name Role Phone Jose David Orellana MD Primary Care Provider [phone] Allergies No known active allergies Medications gabapentin [...] Pneumococcal Conjugate Pcv20 07/15/2022 Zoster, unspecified 05/10/2022 Social History Tobacco Use Types Packs/Day Years [...] 06/29/2023 How often do you attend chur ch or yarsanism services? Never 06/29/2023 Do you belong to any clubs o r organizations such as scientologist groups, unions, fraternal or athletic groups, or [...] place to sleep or slept in a custodial (including now)? No 06/29/2023 Personal Safety Answer Date Recorded Have you ever been in or are you currently in a harmful physical or emotional relationship or is someone making you feel afraid or unsafe? 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 Gender Identity Not on file Sexual Orientation [...] 01/06/2024 2:03 PM CDT Plan of Treatment Not on file Medical Devices Implanted Type Area Jig Builder Device Identifier Shelf Expiration Date Model / Serial / Lot [employer] Bioprep Preparation Plug Kiln Burner Thicket Curette Suction Femoral [id number] - [id number] Implanted:Qty: 1 on 06/29/2023 by Jerson Noble MD at [facility] Right: Hip [employer] [id number] 11/30/2027 [id number] / / [id number] [employer]/Ort ho Synergy 10mm 115mm Primary Cemented Forged Hip 3d Standard Offset [id number] - [id number] Implanted:Qty: 1 on 06/29/2023 by Jerson Noble MD at [facility] Right: Hip [employer] r[employer]o [id number] 11/04/2032 [id number] / / [id number] [employer]/Ort ho Invis 10mm Reconstruction Hip Femur Distal Centralizer Stem Pmma [id number] - [id number] Implanted:Qty: 1 on 06/29/2023 by Jerson Noble MD at [facility] Right: Hip [employer] [id number] 05/12/2033 [id number] / / [id number] [employer] Simplex P Radiopaque Full Dose Cement Bone Sterile 6191-1-010 - [id number] Implanted:Qty: 2 on 06/29/2023 by Jerson Noble MD at [facility] Right: Hip [employer] 09/30/2025 6191-1-010 / / [id number] [employer]/Ort ho Tandem 45mm 28mm Hip Shell/Liner Bipolar Uhmwpe Cocr [id number] - [id number] Implanted:Qty: 1 on 06/29/2023 by Jerson Noble MD at [facility] Right: Hip [employer] [id number] 01/27/2033 [id number] / / [id number] [employer]/Ort ho [place] 28mm Taper Neck Primary Hip +0mm 09/13 Head Femoral Cocr [id number] - [id number] Implanted:Qty: 1 on 06/29/2023 by Jerson Noble MD at [facility] Right: Hip [employer] [id number] 08/07/2032 [id number] / / [id number] Procedures Procedure Name Priority Date/Time Associated Diagnosis Comments COLONOSCOPY 05/18/2023 2:09 PM CDT BONE MINERAL DENSITY 11/13/2017 from Last 3 Months or Most Recently Relevant to Health Maintenance Results * COLONOSCOPY (05/18/2023 2:09 PM CDT) Anatomical Region Laterality Modality Other Narrative Procedure Note Jacqui Fabian MD - 05/18/2023 2:09 PM CDT [facility] Patient Name: Marly Oneal Procedure Date: 05/18/2023 2:09 PM Date of : 1955 Admit Type: Outpatient Age: 67 Gender: Female Attending MD: Jacqui Fabian M.D. Room: [facility] ENDOSCOPY ROOM 05 Note Status: Finalized [...] Resume previous diet. - Continue present medications. Jacqui Fabian M.D. Jacqui Fabian M.D. 05/18/2023 2:53:22 PM . Number of Addenda: 0 Note Initiated On: 05/18/2023 2:09 PM Recognized by the [employer] for promoting quality in endoscopy Jacqui Fabian MD ENDOSCOPY PROCEDURES Rubina l Result * BONE MINERAL DENSITY (11/13/2017) Anatomical Region Laterality Modality Radiographic Winsome ging Narrative 11/13/2017 Ordered by an unspecified provider. Historical Provider IMG DXA PROCEDURES Final Result from Last 3 Months or Most Recently Relevant to Health Maintenance Insurance MEDICARE [employer] MEDICARE [employer] MEDICARE [employer] Advance Directives For more information, please contact: [phone] Documents on File Type Date Recorded Patient Environmental Attorney Expl anation ADVANCE DIRECTIVE 11/26/2023 3:44 PM POLST ADVANCE DIRECTIVE 10/08/2023 3:45 PM POL[facility] - Phys Order for PT Preferences ADVANCE DIRECTIVE 11/07/2022 1:18 PM POLST - Phys Order for PT Preferences ADVANCE DIRECTIVE 11/07/2022 1:17 PM Power of Director Of Radiology-Medical * Full Code (Latest Code Status on File) Date Activated Date Inactivated Comments 06/28/2023 6:19 PM 07/02/2023 10:11 PM * Full Code Date Activated Date Inactivated Comments 10/30/2022 7:41 AM 11/06/2022 9:57 PM Care Teams Line Service Supervisor Relationship Specialty Start Date End Date Jose David Orellana MD [address] [place] [id number] PCP - General Family Practice 03/06/23
--- NOTE | 2025-01-09 10:01 | REHSTMBS ---
Assessment and note entered by DICK Bryant Modified Barium Swallow Evaluation Feeding Type Recommended Non-Oral ST Clinical Summary The above pt was seen for an outpatient modified barium swallow. [place] who [place] sent with a [place] caregiver. Pt was not able to give medical history as pt's volume was very low and speech intelligibility poor. 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 No other medical information could be retrieved. The pt was seen for a lateral view and due to the severity of dysphagia was only presented with thin liquids in two 3 ml trials. Oral stage findings: reduced labial tension/seal as evidenced by leakage of contents; reduced lingual coordination, shaping, & ROM as evidenced by inability to formulate contents into a bolus, reduced ability to propel contents posteriorly, and generalized residue. Pharyngeal stage findings: delayed swallow reflex as evidenced by pooling of contents before the swallow in the valleculae and pyriform sinuses; contents spilled into the laryngel vestibule and were aspirated before the swallow; reduced tongue base retraction as evidenced by vallecular residue, reduced laryngeal elevation as evidenced by pyriform sinus residue and laryngeal penetration during the swallow; reduced laryngeal closure which resulted in aspiration during the swallow; Residual throughout the pharynx was severe; pt lacked sensitivity thus did not initiate a dry swallow or cough reflex which resulted in aspiration after the swallow as well. Impression: severe dysphagia Recommendation: Non oral feeding; dysphagia therapy
== END 2025-01-09 08:49 | disposition home or self-care (01) ==
LOC: ANHIMG 08:58
PROVIDERS: PCP Internal Medicine; Visit Provider Internal Medicine
DX: R13.0 Aphagia (principal)
CPT/HCPCS: 92611